=== PATIENT | female | born 1960 | race Caucasian/White ===

== ENCOUNTER 2017-06-14 14:51 | Observation (INO) | payer BC, OTHER ==
[~2017-06-14] VITALS: Ht 162.6 cm; Wt 73.9 kg
[2017-06-14 14:53] VITALS: BP 176/92
[2017-06-14 15:15] LABS: ABSOLUTE BASOPHILS 0.1 thou/uL (0.0-0.2); ABSOLUTE EOSINOPHILS 0.1 thou/uL (0.0-0.7); ABSOLUTE LYMPHOCYTES 1.7 thou/uL (0.8-5.3); ABSOLUTE MONOCYTES 0.5 thou/uL (0.0-1.2); ABSOLUTE NEUTROPHILS 3.4 thou/uL (1.6-8.1); HEMATOCRIT 39.5 % (37.0-47.0); HEMOGLOBIN 12.7 gm/dL (12.0-15.0); LYMPHOCYTES 29.7 %; MCH 26.4 pg (26.0-34.0); MCHC 32.1 g/dL (28.0-37.0); MCV 82.3 fL (80.0-100.0); MONOCYTES 9.3 %; MPV 7.3 fl. (7.2-11.1); NUCLEATED RBCS 0 /100WBC; PLATELET COUNT* 245 thou/uL (150-400); WBC 5.7 thou/uL (4.0-11.0)
[2017-06-14 15:23] LABS: ANION GAP 10 mmol/L (7-16); BUN 19 mg/dL (7-18); CALCIUM 9.5 mg/dL (8.5-10.1); CHLORIDE 103 mmol/L (98-107); CO2 29 mmol/L (21-32); CREATININE 0.8 mg/dL (0.6-1.3); GLUCOSE 91 mg/dL (70-99); POTASSIUM 3.5 mmol/L (3.5-5.1); SODIUM 142 mmol/L (136-145)
[2017-06-14 15:37] LABS: ALBUMIN 4.3 g/dL (3.4-5.0); ALKALINE PHOSPHATASE 79 U/L (46-116); LIPASE 118 U/L (73-393); NT-PRO BRAIN NAT PEPTIDE 42 pg/mL (<300); SGOT 17 U/L (15-37); SGPT 21 U/L (30-65); TOTAL BILIRUBIN 0.3 mg/dL (<0.1-1.0); TROPONIN-I LEVEL <0.06 ng/mL (<0.06)
[2017-06-14 16:53] VITALS: BP 132/76
[2017-06-14 17:05] VITALS: BP 139/78
[2017-06-14 20:17] VITALS: BP 144/75
[2017-06-15] VITALS: BP 111/60
[2017-06-15 04:00] VITALS: BP 99/53
[2017-06-15 07:50] VITALS: BP 111/60
[2017-06-15 12:00] VITALS: BP 128/76
[2017-06-15] MEDS ORDERED: PAXIL10 MG PO (12:14)
[2017-06-15] MEDS ORDERED: CHILDREN'S ASPI81 MG PO (12:15)
[2017-06-15 12:23] VITALS: BP 128/76
--- NOTE | 2017-06-15 16:31 | EKG ---
[place] [address] ELECTROCARDIOGRAM REPORT Name: BOB CASE Room: [address]#: [id number] Admission: 06/14/17 Attend Phys: Paz Roque Discharge: 06/15/17 Date of : 58 Report #: [id number] THIS REPORT FOR: //name// [facility] ED Test Date: 2017-06-14 Test Time: 14:55:53 Pat Name: BOB CASE Department: Room: [facility] Gender: F [employer] Driver: OSVALDO Loza : 1960 Requested By: Alfredo Ellington Order Number: [id number] MD: Faisal Blood Measurements Intervals [place] Rate: 81 P: 71 TN: 190 QRS: 42 QRSD: 98 T: 41 QT: 368 QTc: 428 Interpretive Statements Sinus rhythm No previous ECG available for comparison Electronically Signed On 06-15-2017 16:31:14 CDT by Faisal Blood [email or web address] <ELECTRONICALLY SIGNED> By: Faisal Blood MD, [facility] 06/15/17 1631 1455 1455 Faisal Blood MD, FACC /EPI
== END 2017-06-15 13:50 | disposition home or self-care (01) ==
LOC: M.ERS 14:51 → M.TBA-ER 15:48 → M.2W 15:48
PROVIDERS: Emergency Medicine Emergency Medical Services; ADMIT Internal Medicine
DX: Z90.710 Acquired absence of both cervix and uterus (principal); R07.9 Chest pain, unspecified; F41.9 Anxiety disorder, unspecified; R11.0 Nausea; R51 Headache; M54.2 Cervicalgia; I10 Essential (primary) hypertension

== ENCOUNTER → 2017-07-06 | Outpatient (CLI) | payer BC, OTHER ==
[~2017-07-06] MED LIST: CHILDREN'S ASPI81 MG PO; PAXIL10 MG PO
--- NOTE | 2017-07-07 17:42 | TST ---
[place] [address] TREADMILL STRESS TEST Name: BOB CASE Room: [facility]#: [id number] Admission: 07/06/17 Attend Phys: Grace Hutchins DO Discharge: Date of : 58 Date of Service: 07/06/17 1720 Report #: [id number] THIS REPORT FOR: //name// CC: Grace Hutchins DO DATE OF SERVICE: 07/06/2017 Exercise stress test requested in this patient with a history of chest pain. PROCEDURE: The patient was exercised on a Vickey protocol without imaging. RESULTS: The patient had a Pretest heart rate of 63, blood pressure 136/84. The patient was able to exercise for 9 minutes and 37 seconds achieving a peak heart rate of 160, which was greater than 90% of maximum predicted heart rate for the patient's age. Peak blood pressure was 212/73. Recovery, the patient had a heart rate of 83, blood pressure 130/80. The patient denied chest pain with exercise, which was terminated due to fatigue. The patient's resting ECG showed a normal sinus rhythm with no significant ST or T-wave change at baseline. With exercise, there was a significant amount of artifact noted. The patient did develop 1.[address] segment depression in lead V4, V5 and V6 at peak exercise. The ST segment changes persisted for 2 minutes in recovery. IMPRESSION: 1. Excellent exercise tolerance. 2. Nonspecific ST segment changes noted with exercise. 3. No chest pain with exercise. 4. Nondiagnostic exercise stress test for myocardial ischemia secondary to nonspecific ST-segment changes. 5. Intermediate future risk for cardiac events secondary to nonspecific ST-segment changes. 6. If clinically indicated, would consider stress testing with imaging to improve the specificity of treadmill testing to rule out ischemia. <ELECTRONICALLY SIGNED> By: Ruddy Velasco MD, FACC 07/07/17 1742 1720 2209 Ruddy Velasco MD, FACC /nt
== END ==
LOC: M.CRD 11:47
DX: R07.9 Chest pain, unspecified (principal)